=== PATIENT | male | born 1955 | race Caucasian/White ===

== ENCOUNTER 2021-10-05 08:44 | Inpatient (IN) | payer MEDICARE, BC, SELFPAY ==
[2021-10-05] VITALS (16 sets, daily range): BP systolic 105–166; BP diastolic 53–106; PULSE 82–100; RESP 12–22; TEMP 36.7–37.6; O2SAT 90–100; BMI 43.1; BMI 43.7
--- NOTE | 2021-10-05 09:29 | ED_ITS ---
HPI - Nausea/Vomiting/Diarrhea General Time Seen by Provider: 09:29 Date Seen: 10/05/21 Chief complaint: Nausea/Vomiting Stated complaint: Covid+, vomiting Time Seen by Provider: 10/05/21 08:50 Source: patient and RN notes reviewed Mode of arrival: ambulatory Limitations: no limitations History of Present Illness HPI Narrative: Patient is a 60-year-old male coming into the ER with right lower quadrant abdominal pain that has been there for about 3-4 days, nausea vomiting and diarrhea starting last night. This is in the setting of COVID with symptoms starting on FridayOctober 01. His started to become ill the day before him on Friday. He tested positive on Friday of this week with a home test. But again he started with symptoms with headache chills and fevers, sore throat, cough, congestion on Friday. The nausea vomiting and diarrhea started yesterday. He feels he has thrown up 5 times since last night with the last 3 times just being more bilious. The right lower quadrant pain is higher than the inguinal area where he has had inguinal hernia repair. It does not feel anything like the inguinal hernia. He is wondering if he can get Paxilovid. As discussed with him we need his kidney function and a full medication reconciliation, and we definitely can consider that. He needs to be able to take this orally though so we do need to work on the nausea and vomiting. He has been vaccinated for COVID and has had 1 booster. MD elicited complaint: nausea, vomiting, diarrhea and abdominal pain Pertinent past history: other (Has COVID currently) Onset (ago): day(s) Related Data Home Medications Medication Instructions Recorded Confirmed No Known Home Medications 10/05/21 10/05/21 Allergies Allergy/AdvReac Type Severity Reaction Status Date / Time No Known Drug Allergies Allergy Verified 10/05/21 09:05 Review of Systems Status of ROS: Reports: 10 or more systems reviewed and unremarkable except as noted in History and below [facility] Medical History (Updated 10/05/21 @ 13:02 by Anastasiia Garces MD) Erectile dysfunction Impaired fasting glucose Obesity Surgical History (Updated 10/05/21 @ 10:12 by Sindhu Almodovar MD) History of colonoscopy History of herniorrhaphy [place] teeth extracted Family History (Updated 10/05/21 @ 20:55 by Estelle Perez RN) Mother Cancer Brother Cancer Social History Highest level of school completed/degree received: high school graduate Smoking Status: Former smoker Do you use any of these nicotine containing products: None Second hand tobacco smoke exposure: No How often do you have a drink containing alcohol: monthly or less Alcohol type: hard liquor Alcohol type details: Marjarita How often do you have six or more drinks on one occasion: Never AUDIT-C Alcohol total score: 1 Non-prescribed substance use: denies use Caffeine: Yes (1 daily) service: No Exam Const: Vital Signs, click to edit/add: Vital Signs - 24 hr 10/05/21 09:05 10/05/21 13:43 10/05/21 14:23 Temperature 98.1 F 99.7 F H 99.7 F H Pulse Rate Pulse Rate [Right Pulse Oximeter] 100 86 Respiratory Rate 20 22 22 Blood Pressure Blood Pressure [Ri ght Arm] Blood Pressure [Ri ght Upper Arm] 142/106 H 166/88 H Pulse Oximetry 96 96 10/05/21 17:44 10/05/21 17:53 10/05/21 17:59 Temperature Pulse Rate 86 84 85 Pulse Rate [Right Pulse Oximeter] Respiratory Rate 12 12 12 Blood Pressure 137/60 118/56 L 105/53 L Blood Pressure [Ri ght Arm] Blood Pressure [Ri ght Upper Arm] Pulse Oximetry 99 100 99 10/05/21 18:38 10/05/21 18:45 Temperature 99.7 F H 99.7 F H Pulse Rate 97 Pulse Rate [Right Pulse Oximeter] 93 Respiratory Rate 18 18 Blood Pressure Blood Pressure [Ri ght Arm] 148/90 H 147/89 H Blood Pressure [Ri ght Upper Arm] Pulse Oximetry 92 Documenting provider has reviewed patient's vital signs: yes Common normals: no apparent distress, oriented x3, no limitations, alert and well nourished General appearance: cooperative, comfortable and well kempt Nutritional appearance: obese Orientation/consciousness: Yes awake HENMT: Common normals: normocephalic, head/scalp atraumatic, hearing grossly normal bilaterally, external ears normal, EAC's normal, external nose normal, moist oral mucous membranes, oropharynx normal and dentition normal Head and scalp: normocephalic and atraumatic Nose: external nose normal External ear: external ears normal External auditory canal: EAC's normal Eye: Common normals: PERRL, EOMs intact bilaterally, conjunctivae normal and no scleral icterus Conjunctiva: conjunctiva(e) normal Pupil: PERRL Neck & C-Spine: Common normals: full ROM, no lymphadenopathy, supple, no meningeal signs, no JVD and thyroid normal Thyroid: thyroid normal Resp: Common normals: normal respiratory effort, no retractions, no use of accessory muscles and clear to auscultation bilaterally Auscultation: clear to auscultation bilaterally Cardio: Common normals: no JVD, regular rate, regular rhythm, S1 normal heart sound, S2 normal heart sound, no gallops, no clicks and no murmurs Rate: regular rate Rhythm: regular rhythm Heart sounds: S1 normal and S2 normal GI: Other: Abdomen is obese, he has right lower quadrant tenderness with to underlying pal pable mass but his body habitus could preclude to the evaluation. Does not seem to be a hernia but he definitely seems to be tender in the abdominal wall. There is no right inguinal pain or protrusion. I do not feel any masses, no noted organomegaly. Bowel sounds are present. Extremity: Common normals: normal to inspection, full ROM, no calf tenderness and no pedal edema Neuro: Common normals: oriented x3 Sensorium/orientation: awake and alert Meningeal signs: no meningeal signs Psych: Appearance: well kempt Skin: Common normals: no rashes or lesions noted (Skin is tanned) General skin exam: no rashes or lesions noted (Skin is tanned) Course Course Hospital Course: We will place an IV, initiate normal saline, 15 mg IV Toradol for pain and 4 mg IV Zofran. We will get labs including his kidney function to see if he might be a candidate for Paxlovid. We will obtain CT abdomen pelvis with IV contrast to ensure no intra-abdominal pathology or any surgical abdomen. It is likely that this is just side effects from COVID but we certainly cannot miss a surgical abdomen in this patient. He still has his appendix. He is tender enough that I do think we need to proceed with imaging. Reevaluation(s) Reevaluation #1: Reviewed with patient his CT scan results of appendicitis. It may be ruptured but no abscess. We are waiting for the surgeon to look at the scan and to see the patient. Once she has evaluated the patient and his results, formal plan will be made. Time: 12:09 Consultations Consultation #1: Called Dr. Garces to alert her to this patient's CT scan with appendicitis and contained perforation but not abscess. She will look at the CT images as soon as she is able and get back to me. I will be letting the patient know the scan results. Unfortunately, I have also let our surgeon know that there is absolutely no capacity at any other beds and advanced level institutions. We have attempted to transfer different patient just within the past hour and there is completely no capacity for this level of patient. Dr. Garces did call back shortly after my initial phone call and actually spoke to my partner Dr. Gardner. Patient is going to need to go to the OR today and will likely be later this afternoon due to the schedule the OR. We will let the patient know. Dr. Gardner did appropriately converse with Dr. Garces about remdesivir for treatment of this patient's COVID. I will be speaking with him that we do have remdesivir here and I do recommend using remdesivir in lieu of Paxlovid. We do not have any Paxlovid within the system here. Time: 11:59 Vital Signs Vital signs: Initial Vital Signs Temperature 98.1 F 10/05/21 09:05 Temperature Source Temporal Artery Scan 10/05/21 09:05 Pulse Rate 100 10/05/21 09:05 Respiratory Rate 20 10/05/21 09:05 Blood Pressure 142/106 H 10/05/21 09:05 Blood Pressure Mean 118 10/05/21 09:05 Blood Pressure Position Sitting 10/05/21 09:05 Pulse Oximetry 96 10/05/21 09:05 Oxygen Delivery Method 10/05/21 09:05 Vital Signs Temperature 98.1 F 10/05/21 09:05 Pulse Rate 100 10/05/21 09:05 Respiratory Rate 20 10/05/21 09:05 Blood Pressure 142/106 H 10/05/21 09:05 Pulse Oximetry 96 10/05/21 09:05 Temperature 98.1 F 10/05/21 22:00 Pulse Rate 91 10/05/21 22:00 Respiratory Rate 18 10/05/21 22:00 Blood Pressure 155/83 H 10/05/21 22:00 Pulse Oximetry 93 10/05/21 22:00 MDM - Nausea/Vomiting/Diarrhea Lab Data Attestation: I reviewed the patient's lab results. Labs: Lab Results 10/05/21 10/05/21 10/05/21 Range/Units 10:10 10:10 10:10 WBC 14.54 H (4.50-11.00) K/uL RBC 5.29 (4.30-5.90) m/uL Hgb 13.7 (13.5-17.5) gm/dL Hct 40.8 (37.0-53.0) % MCV 77 L (80-100) fL MCH 26 (26-34) pg MCHC 34 (32-36) gm/dL RDW Coeff of Kirsty 13.6 (11.5-15.5) % Plt Count 245 (140-440) K/uL Neut % (Auto) 87.3 H (42.0-72.0) % Lymph % (Auto) 5.6 L (20-44) % Caroline % (Auto) 6.9 (0.0-11.0) % Eos % (Auto) 0.0 (0.0-7.0) % Baso % (Auto) 0.1 (0.0-3.0) % Neut # (Auto) 12.70 H (1.7-7.0) K/uL Lymph # (Auto) 0.80 L (0.90-2.90) K/uL Caroline # (Auto) 1.00 H (0.00-0.90) K/UL Eos # (Auto) 0.00 (0.00-0.50) K/uL Baso # (Auto) 0.00 (0.00-0.30) K/uL Abs Immat Gran (auto) 0.01 (0.00-0.30) K/uL Sodium 134 L (135-149) mmol/L Potassium 4.2 (3.6-5.1) mmol/L Chloride 96 (96-114) mmol/L Carbon Dioxide 27 (20-32) mmol/L BUN 20 (7-30) mg/dL Creatinine 0.9 (0.5-1.5) mg/dL Estimated Creat Clear 66.10 Estimated GFR 93 ml/min Glucose 143 H (60-115) mg/dL Lactate 1.3 (0.5-1.9) mmol/L Calcium 8.6 (8.4-10.6) mg/dL Total Bilirubin 0.7 (0.1-1.5) mg/dL AST 31 (12-35) U/L ALT 19 (4-50) U/L Alkaline Phosphatase 100 (40-150) U/L C-Reactive Protein 3.7 H (0.5-1.0) mg/dL Total Protein 7.8 (6.0-8.3) g/dL Albumin 4.1 (3.3-5.0) g/dL Imaging Data CT scan - abdomen: Attestation: I have reviewed the pertinent imaging results. Radiologist's impression: Patient: KANDY VERGARA Facility:?[facility] Patient ID:?[id number] Site Patient ID:?[id number]. Site :?[id number] Study:?CT Abdomen/Pelvis 130CC ISOVUE 370-10/05/2021 11:20:03 AM Ordering Physician:Laly Manley Final Report: INDICATION: COVID-19 positive; nausea and vomiting. Comparison : None. TECHNIQUE: CT abdomen and pelvis with intravenous contrast; coronal and sagittal reformats. FINDINGS: Questionable patchy infiltrates lung bases bilaterally; quality is compromised s econdary to respiratory motion. No evidence of pleural effusion. No focal hepatic or splenic pathology. No pancreatic pathology. Cholelithiasis. No adrenal pathology. No kidney stones or obstructive uropathy. No retroperitoneal lymphadenopathy. No evidence of abdominal or pelvic ascites. Diverticulosis sigmoid colon without any CT evidence of diverticulitis or abscess. Enlarged appendix measuring 2 cm in diameter with periappendiceal inflammatory changes indicating acute appendicitis. A contained rupture is not ruled out. No pneumoperitoneum or intestinal obstruction. Splenic vein, superior mesenteric vein and the portal vein are unremarkable. Impression: 1. Acute appendicitis possibly with contained rupture; no pneumoperitoneum or intestinal obstruction. 2. Cholelithiasis. 3. Diverticulosis sigmoid colon without any evidence of diverticulitis or abscess. Please note that all CT scans at this facility use dose modulation, iterative reconstruction, and/or weight-based dosing when appropriate to reduce radiation dose to as low as reasonably achievable. Dictated by Angel Delgadillo MD @ 10/05/2021 11:50:32 AM (Electronic Signature) Chest x-ray: Attestation: I have reviewed the pertinent imaging results. Radiologist's impression: Patient: KANDY VERGARA Facility:?[facility] Patient ID:?[id number] Site Patient ID:?[id number]. Site :?[id number] Study:?XRay Chest -10/05/2021 12:29:47 PM Ordering Physician:Laly Manley Final Report: Indication: Positive for epstein virus, vomiting Comparison: None available. Technique: Single AP view chest Findings: There is hyperinflation and chronic interstitial change. There are mildly increased interstitial markings likely representing mild pulmonary edema. There is no dense consolidation, effusion or pneumothorax. The cardiac silhouette is mildly prominent. The bony thorax is grossly intact. Impression: Hyperinflation and chronic interstitial change with mildly increased interstitial markings likely representing mild pulmonary edema. Dictated by Kedar Hernandez MD @ 10/05/2021 12:56:33 PM (Electronic Signature) ECG Data Attestation: I personally reviewed and interpreted this ECG as follows: (Sinus rhythm, 76 beats per minute. There is a solitary premature atrial complex. Very minimal nonspecific ST segment changes without T-wave inversion.) ECG interpretation date: 10/05/21 ECG interpretation time: 13:32 Prior ECG tracings: not available for review Discharge Plan Discharge Clinical Impression: COVID-19, Acute appendicitis Patient Disposition: Admitted As Inpatient Condition: Unchanged Critical Care Time Critical Care Time Critical Care Time: No
--- NOTE | 2021-10-05 09:41 | CRLHL7_ITS ---
For Patients: As a result of the Century Cures Act, medical imaging exams and procedure reports are released immediately into your electronic medical record. You may view this report before your referring provider. If you have questions, please contact your health care provider. INDICATION: COVID-19 positive; nausea and vomiting. Comparison : None. TECHNIQUE: CT abdomen and pelvis with intravenous contrast; coronal and sagittal reformats. FINDINGS: Questionable patchy infiltrates lung bases bilaterally; quality is compromised secondary to respiratory motion. No evidence of pleural effusion. No focal hepatic or splenic pathology. No pancreatic pathology. Cholelithiasis. No adrenal pathology. No kidney stones or obstructive uropathy. No retroperitoneal lymphadenopathy. No evidence of abdominal or pelvic ascites. Diverticulosis sigmoid colon without any CT evidence of diverticulitis or abscess. Enlarged appendix measuring 2 cm in diameter with periappendiceal inflammatory changes indicating acute appendicitis. A contained rupture is not ruled out. No pneumoperitoneum or intestinal obstruction. Splenic vein, superior mesenteric vein and the portal vein are unremarkable. Impression: 1. Acute appendicitis possibly with contained rupture; no pneumoperitoneum or intestinal obstruction. 2. Cholelithiasis. 3. Diverticulosis sigmoid colon without any evidence of diverticulitis or abscess. Please note that all CT scans at this facility use dose modulation, iterative reconstruction, and/or weight-based dosing when appropriate to reduce radiation dose to as low as reasonably achievable. Dictated by Angel Delgadillo MD @ 10/05/2021 11:50:32 AM (Electronically Signed)
[2021-10-05] MEDS: KETOROLAC 15 MG/ML inj IVP (10:11)
[2021-10-05] MEDS: ONDANSETRON 2 MG/ML inj 4 MG IVP (10:11)
[2021-10-05] MEDS: 0.9 % SODIUM CHLORIDE 500 ML 500 ML IV (10:12)
[2021-10-05 10:22] LABS: Lactate* 1.3 mmol/L (0.5-1.9)
[2021-10-05 10:23] LABS: Basophils Percent Auto 0.1 % (0.0-3.0); Hematocrit 40.8 % (37.0-53.0); Hemoglobin* 13.7 gm/dL (13.5-17.5); Immature Granulocytes Abs Auto 0.01 K/uL (0.00-0.30); Lymphocytes Percent Auto 5.6 % (20-44); Mean Corpuscular HGB Conc 34 gm/dL (32-36); Mean Corpuscular Hemoglobin 26 pg (26-34); Mean Corpuscular Volume 77 fL (80-100); Monocytes Percent Auto 6.9 % (0.0-11.0); Neutrophils Percent Auto 87.3 % (42.0-72.0); Platelet Count* 245 K/uL (140-440); RDW Coefficient of Variation % 13.6 % (11.5-15.5); Red Blood Count 5.29 m/uL (4.30-5.90); White Blood Count* 14.54 K/uL (4.50-11.00)
[2021-10-05 10:32] LABS: Slide Review Reflex No
[2021-10-05 10:40] LABS: Albumin* 4.1 g/dL (3.3-5.0); Chloride* 96 mmol/L (96-114); Potassium* 4.2 mmol/L (3.6-5.1); Sodium* 134 mmol/L (135-149)
[2021-10-05 10:42] LABS: Creatinine* 0.9 mg/dL (0.5-1.5); Estimated Glomerular Filt Rate 93 ml/min
[2021-10-05 10:43] LABS: Alanine Aminotransferase* 19 U/L (4-50); Alkaline Phosphatase* 100 U/L (40-150); Aspartate Amino Transferase* 31 U/L (12-35); Bilirubin Total* 0.7 mg/dL (0.1-1.5); Blood Urea Nitrogen* 20 mg/dL (7-30); Carbon Dioxide* 27 mmol/L (20-32); Total Protein* 7.8 g/dL (6.0-8.3)
[2021-10-05 10:44] LABS: Calcium* 8.6 mg/dL (8.4-10.6); Glucose* 143 mg/dL (60-115)
[2021-10-05 10:46] LABS: C Reactive Protein* 3.7 mg/dL (0.5-1.0)
--- NOTE | 2021-10-05 12:03 | CRLHL7_ITS ---
For Patients: As a result of the Cures Act, medical imaging exams and procedure reports are released immediately into your electronic medical record. You may view this report before your referring provider. If you have questions, please contact your health care provider. Indication: Positive for epstein virus, vomiting Comparison: None available. Technique: Single AP view chest Findings: There is hyperinflation and chronic interstitial change. There are mildly increased interstitial markings likely representing mild pulmonary edema. There is no dense consolidation, effusion or pneumothorax. The cardiac silhouette is mildly prominent. The bony thorax is grossly intact. Impression: Hyperinflation and chronic interstitial change with mildly increased interstitial markings likely representing mild pulmonary edema. Dictated by Kedar Hernandez MD @ 10/05/2021 12:56:33 PM (Electronically Signed)
--- NOTE | 2021-10-05 12:57 | PM.GSCN ---
History of Present Illness Consult details Consult date: 10/05/21 Narrative: Patient is a 66-year-old male, COVID positive, who presented to the emergency department with worsening right lower quadrant abdominal pain. He initially started to have COVID symptoms on Friday and tested positive Friday. On Friday he started to develop some diffuse abdominal pain. He has never had pain like this before. The pain then moved to his right lower abdomen. He denies any fevers, was having associated chills. Denies any nausea vomiting but has had decrease in appetite. His abdominal surgical history is positive for inguinal hernia repair. No problems with anesthesia, bleeding or blood clots. Review of Systems Status of ROS: Reports: 10 or more systems reviewed and unremarkable except as noted in History and below [facility] Medical History (Updated 10/05/21 @ 13:02 by Anastasiia Garces MD) Erectile dysfunction Impaired fasting glucose Obesity Surgical History (Updated 10/05/21 @ 10:12 by Sindhu Almodovar MD) History of colonoscopy History of herniorrhaphy [place] teeth extracted Social History Smoking Status: Smoker, status unknown Non-prescribed substance use: denies use Meds Home Medications and Allergies Home Medications Medication Instructions Recorded Confirmed Type No Known Home Medications 10/05/21 10/05/21 History Allergies Allergy/AdvReac Type Severity Reaction Status Date / Time No Known Drug Allergies Allergy Verified 10/05/21 09:05 Exam Narrative: Exam Narrative: General: Alert and oriented, no acute distress Respiratory: Equal breath rise bilaterally, maintained on room air CV: Regular rhythm and rate Abdomen: Obese abdomen, tender to palpation right lower quadrant with some guarding, no rebound. Const: Vital Signs, click to edit/add: Vital Signs - 24 hr 10/05/21 09:05 Temperature 98.1 F Pulse Rate [Right Pulse Oximeter] 100 Respiratory Rate 20 Blood Pressure [Ri ght Upper Arm] 142/106 H Pulse Oximetry 96 Results Labs Labs: Abnormal lab results 10/05/21 10/05/21 Range/Units 10:10 10:10 WBC 14.54 H (4.50-11.00) K/uL MCV 77 L (80-100) fL Neut % (Auto) 87.3 H (42.0-72.0) % Lymph % (Auto) 5.6 L (20-44) % Neut # (Auto) 12.70 H (1.7-7.0) K/uL Lymph # (Auto) 0.80 L (0.90-2.90) K/uL Anderson # (Auto) 1.00 H (0.00-0.90) K/UL Sodium 134 L (135-149) mmol/L Glucose 143 H (60-115) mg/dL C-Reactive Protein 3.7 H (0.5-1.0) mg/dL Diabetes panel 10/05/21 Range/Units 10:10 Sodium 134 L (135-149) mmol/L Potassium 4.2 (3.6-5.1) mmol/L Chloride 96 (96-114) mmol/L Carbon Dioxide 27 (20-32) mmol/L BUN 20 (7-30) mg/dL Creatinine 0.9 (0.5-1.5) mg/dL Glucose 143 H (60-115) mg/dL Calcium 8.6 (8.4-10.6) mg/dL AST 31 (12-35) U/L ALT 19 (4-50) U/L Alkaline Phosphatase 100 (40-150) U/L Total Protein 7.8 (6.0-8.3) g/dL Albumin 4.1 (3.3-5.0) g/dL Calcium panel 10/05/21 Range/Units 10:10 Calcium 8.6 (8.4-10.6) mg/dL Albumin 4.1 (3.3-5.0) g/dL Pituitary panel 10/05/21 Range/Units 10:10 Sodium 134 L (135-149) mmol/L Potassium 4.2 (3.6-5.1) mmol/L Chloride 96 (96-114) mmol/L Carbon Dioxide 27 (20-32) mmol/L BUN 20 (7-30) mg/dL Creatinine 0.9 (0.5-1.5) mg/dL Glucose 143 H (60-115) mg/dL Calcium 8.6 (8.4-10.6) mg/dL Adrenal panel 10/05/21 Range/Units 10:10 Sodium 134 L (135-149) mmol/L Potassium 4.2 (3.6-5.1) mmol/L Chloride 96 (96-114) mmol/L Carbon Dioxide 27 (20-32) mmol/L BUN 20 (7-30) mg/dL Creatinine 0.9 (0.5-1.5) mg/dL Glucose 143 H (60-115) mg/dL Calcium 8.6 (8.4-10.6) mg/dL Total Bilirubin 0.7 (0.1-1.5) mg/dL AST 31 (12-35) U/L ALT 19 (4-50) U/L Alkaline Phosphatase 100 (40-150) U/L Total Protein 7.8 (6.0-8.3) g/dL Albumin 4.1 (3.3-5.0) g/dL All other labs normal. Imaging Abdomen CT scan report/results: report reviewed and image reviewed Assessment and Plan Assessment and plan (1) Acute perforated appendicitis: Status: Acute Plan The patient presented with a history, exam and imaging findings consistent with acute appendicitis. On CT imaging there is evidence of a contained perforation, no large abscess that would be amendable to drainage. Complicating matters is the patient's recent diagnosis of symptomatic COVID illness. From a respiratory standpoint he is oxygenating well on room air and denies any shortness of breath. I discussed the treatment options with the patient including non-surgical and surgical options. Given the evidence of acute perforation I recommended laparoscopic appendectomy. The risks of surgery were reviewed with the patient including the risks of bleeding, post-operative wound or intra-abdominal infection, injury to abdominal structures and possible conversion to an open operation. We also discussed anesthetic complications including AL, stroke, respiratory failure and blood clots. The patient voiced an understanding of our conversation, had the opportunity to ask questions, agreed to accept the risks of surgery and asked that we proceed with surgery. -OR for laparoscopic appendectomy -patient will receive remdesivir in the emergency department given recent diagnosis of COVID -preoperative antibiotics, will likely need to continue these postoperatively given the status of perforation.
[2021-10-05] MEDS: PIPERACILLIN/TAZOBACTAM 3.375 GM in 0.9 % SODIUM CHLORIDE Mini-bag 100 ML IVPB ×2 (14:30→20:29)
[2021-10-05] MEDS: BUPIVACAINE 0.25% 30 ML INJECTION (15:32)
[2021-10-05] MEDS: BUPIVACAINE LIPOSOME 133 MG/10 ML INJ INFILTRATI (17:07)
[2021-10-05] MEDS: LACTATED RINGERS 1000 ML 1,000 ML 35 ML IV (17:30)
--- NOTE | 2021-10-05 17:45 | W.ANESCHARGE ---
Anesthesia Charges Start Date/Time Anesthesia Start Date: 10/05/21 Anesthesia Start Time: 14:25 Stop Date/Time Anesthesia Stop Date: 10/05/21 Anesthesia Stop Time: 17:40 Summary Emergency: Yes
--- NOTE | 2021-10-05 18:34 | PM.GSPRC ---
Operative Note Date of procedure: 10/05/21 Type of Procedure: Laparoscopic converted to open appendectomy Procedure Description: After discussing the risks and benefits of the procedure, the patient signed informed consent.? The operative site was marked and the patient was brought to the operating room and placed on the operating table in supine position.? Care was taken to pad the patient's pressure points.?? The patient was then intubated by anesthesia.?? The operative site was then prepped and draped in the usual sterile fashion.? A time-out was then performed. Entrance to the abdomen was obtained via a 5 mm optical trocar in the left upper quadrant. The abdomen was insufflated and briefly surveyed for any signs of injury. There were none. A 12 mm port was placed lateral to the umbilicus as well as a 5 mm port in the left lower quadrant under direct vision. The patient was then placed in Trendelenburg position with the right side up. The small bowel was gently moved out of the way. The appendix was very difficult to visualize since it was posterior to the cecum. Blunt dissection was utilized, as well as electrocautery to break up the lateral wall attachments. A thick inflammatory rind was present with a necrotic appearing appendix. Visualization of the appendix and the anatomy was made difficult secondary to location and the surrounding phlegmon. There was a small amount of purulence and some stool apparent, indicating perforation. The base of the appendix was visualized and an attempt was made to dissect out circumferentially. During this dissection the appendix perforation became worse with further contamination of stool. The decision was made at this time to convert to an open operation. A right lower quadrant transverse incision was made with a scalpel. Dissection was continued through the subcutaneous space with electrocautery. The anterior fascia was incised with electrocautery. The rectus muscle was divided and a transverse incision was made in the posterior fascia. An Ronald retractor was placed within the wound. The cecum was identified and [place] used to pull up the appendix base. The lateral attachments of the cecum was further dissected with electrocautery. The inflammatory rind around the appendix was further dissected out. The laparoscopic stapler was then utilized to perform a partial cecectomy just proximal to the appendix base with a 60 mm bowel staple load. The specimen was handed off to the back table to be sent for pathology. The staple line was examined with no evidence of bleeding and healthy tissue identified. The cavity was gently irrigated with saline. No bleeding was identified. A right lower quadrant drain was left in place. The right lower quadrant anterior and posterior fascia was closed with running 1-0 PDS suture. At this point the abdomen was reinsufflated, again hemostasis appeared excellent at the end of the case and the drain was in appropriate position within the right lower quadrant. The 12 mm port was closed with the Toney Cruz and 0 Vicryl suture. The abdomen was then desufflated and all ports removed under direct visualization. All port sites were closed with 4-0 Monocryl suture. The larger incision was closed in layers with interrupted 3 0 Vicryl and running 4-0 Monocryl suture. Sterile dressings were applied. Instrument sponge and needle counts were correct at the end of the case. The patient was then woken and transported to the PACU in stable condition. ? Sterile dressings were then applied. ? The patient was then woken and transported to the recovery area in stable condition. ? The patient tolerated the procedure well. Findings: Perforated, necrotic appendix. Difficult visualization and stool contamination with conversion to open operation. Anesthesia: GETA Surgeon: Anastasiia Garces MD Estimated blood loss (mL): 50 Condition: stable Disposition: PACU
--- NOTE | 2021-10-05 18:38 | PC.NURSE ---
Patient very combative with waking up. thrashing in the bed and trying to get out of the bed. VSS. Patient taken to med/surg unit via bed with assist of machine ii trimmer. Patient refused to wear a mask while transporting. Report given to med/surg nurse. Assisted patient to stand at the side of the bed to use the urinal. Patient became more coherent with time and didn't remember anything from the day. Incisions and drain intact. RAMILA patent of 25ml of bloody drainage. Patient settled into bed.
--- NOTE | 2021-10-05 18:58 | PC.NURSE ---
Shift Summary: Patient arrived to floor around 1824. Very disoriented and impulsive, difficult to redirect. Patient has already voided x1. IV in left AC patent. RAMILA in right lower abdomen patent, small amount of blood around dressing site. Patient requested ice for abdomen, when given took pillow case off and refusing to let staff put new case on. Tolerating fluids now, denies nausea. Rates pain 9/10. Still confused, repetitive questions to staff, states he can't remember the entire day. Bed alarm on, reminded frequently to use call light.
--- NOTE | 2021-10-05 19:06 | PM.IMCN1 ---
Date of Consult Consult date: 10/05/21 Primary Care Provider: Yoav Linder MD Consult Narrative Reason for consult: COVID Narrative: Gordy Harp is a 66 year old male who presented to the hospital today for a 4 day history of intractable vomiting and diarrhea. Symptoms accompanied by anorexia, and begain 4 days ago (Friday) - at that time, accompanied by headache, cough, and body aches. tested + for COVID last weekend, so patient did a home test on Friday (+). Most of his COVID symptoms have improved, but given progression of GI symptoms, presented to the ED today. ED Course and findings: - perforated appendicitis on CT, WBC 14 - Given 200mg of IV Remdesivir for COVID Patient taken to OR by Dr. Garces of General Surgery; appendectomy converted to open, no operative or anesthetic complications. On IV antibiotics given perforation. Dane denies significant past medical history, notes history of white coat HTN. No regular medications, has been using prn Ibuprofen for COVID symptoms. UTD on colonoscopy screening - 2019. Hernia repair 2012. Thrice COVID vaccinated. Adopted, biological mother of leukemia. Lives with locally. 2 adult children, 5 grandchildren. Retired. Former smoker (40 pack year history). Rare ETOH use. Review of Systems Status of ROS: Reports: 10 or more systems reviewed and unremarkable except as noted in History and below Narrative: Mildly confused upon awakening from anesthesia, aware of the confusion. +mild anxiety regarding hospitalization. No other concerns for hospitalist team. [facility] Medical History (Updated 10/05/21 @ 13:02 by Anastasiia Garces MD) Erectile dysfunction Impaired fasting glucose Obesity Surgical History (Updated 10/05/21 @ 10:12 by Sindhu Almodovar MD) History of colonoscopy History of herniorrhaphy [place] teeth extracted Family History (Updated 10/05/21 @ 20:55 by Estelle Perez RN) Mother Cancer Brother Cancer Social History Highest level of school completed/degree received: high school graduate Smoking Status: Former smoker Do you use any of these nicotine containing products: None Second hand tobacco smoke exposure: No How often do you have a drink containing alcohol: monthly or less Alcohol type: hard liquor Alcohol type details: Buddy How often do you have six or more drinks on one occasion: Never AUDIT-C Alcohol total score: 1 Non-prescribed substance use: denies use Caffeine: Yes (1 daily) service: No Meds Home Medications and Allergies Home Medications Medication Instructions Recorded Confirmed Type No Known Home Medications 10/05/21 10/05/21 History Allergies Allergy/AdvReac Type Severity Reaction Status Date / Time No Known Drug Allergies Allergy Verified 10/05/21 09:05 Exam Narrative: Exam Narrative: GEN: Alert and oriented, answering questions appropriately HEENT: Normal external ears, EOMIs bilaterally, no scleral icterus CV: RRR, No concerning murmurs, rubs, or gallops R: LCTA bilaterally without concerning wheezing, rales, or rhonchi. Air movement adequate Ext: wwp, no concerning edema Skin: No concerning skin lesions or rashes on exposed skin Neuro: Nonfocal, no resting tremor, gait not observed Psych: Appropriate Const: Vital Signs, click to edit/add: Vital Signs - 24 hr 10/05/21 09:05 10/05/21 13:43 10/05/21 14:23 Temperature 98.1 F 99.7 F H 99.7 F H Pulse Rate Pulse Rate [Right Pulse Oximeter] 100 86 Respiratory Rate 20 22 22 Blood Pressure Blood Pressure [Ri ght Arm] Blood Pressure [Ri ght Upper Arm] 142/106 H 166/88 H Pulse Oximetry 96 96 10/05/21 17:44 10/05/21 17:53 10/05/21 17:59 Temperature Pulse Rate 86 84 85 Pulse Rate [Right Pulse Oximeter] Respiratory Rate 12 12 12 Blood Pressure 137/60 118/56 L 105/53 L Blood Pressure [Ri ght Arm] Blood Pressure [Ri ght Upper Arm] Pulse Oximetry 99 100 99 10/05/21 18:38 10/05/21 18:45 Temperature 99.7 F H 99.7 F H Pulse Rate 97 Pulse Rate [Right Pulse Oximeter] 93 Respiratory Rate 18 18 Blood Pressure Blood Pressure [Ri ght Arm] 148/90 H 147/89 H Blood Pressure [Ri ght Upper Arm] Pulse Oximetry 92 Labs Labs: Short CBC 10/05/21 Range/Units 10:10 WBC 14.54 H (4.50-11.00) K/uL Hgb 13.7 (13.5-17.5) gm/dL Hct 40.8 (37.0-53.0) % Plt Count 245 (140-440) K/uL BMP 10/05/21 10:10 Sodium 134 L Potassium 4.2 Chloride 96 Carbon Dioxide 27 BUN 20 Creatinine 0.9 Glucose 143 H Calcium 8.6 Liver Function 10/05/21 Range/Units 10:10 Total Bilirubin 0.7 (0.1-1.5) mg/dL AST 31 (12-35) U/L ALT 19 (4-50) U/L Alkaline Phosphatase 100 (40-150) U/L Albumin 4.1 (3.3-5.0) g/dL Assessment and Plan Assessment and plan (1) Acute perforated appendicitis: Status: Acute (2) COVID-19: Status: Acute Plan 66 yo male, s/p appendectomy, + COVID. 1. COVID: RT referral, continue Remdesivir. Vital signs reassuring, not requiring supplemental oxygen. 2. Perforated appendicitis: Continue IV antiobiotics and routine postoperative cares per General Surgery. 3. Patient requests Full Code status.
[2021-10-05] MEDS: HYDROmorphone 0.5 mg/0.5 ml inj IVP ×3 (19:12→23:09)
[2021-10-06] VITALS (9 sets, daily range): BP systolic 140–161; BP diastolic 70–105; PULSE 79–88; RESP 18–20; TEMP 36.5–36.9; O2SAT 92–95
[2021-10-06] MEDS: HYDROmorphone 0.5 mg/0.5 ml inj IVP ×4 (01:54→17:25)
[2021-10-06] MEDS: PIPERACILLIN/TAZOBACTAM 3.375 GM in 0.9 % SODIUM CHLORIDE Mini-bag 100 ML IVPB ×4 (02:06→20:58)
[2021-10-06] MEDS: LACTATED RINGERS 1000 ML 1,000 ML 125 ML IV (02:06)
--- NOTE | 2021-10-06 04:57 | PC.NURSE ---
Shift note 19-23: Pt alert, using call light for needs. Up to BR w/ SBA, rating pain 2-5/10 taking PRN Dilaudid Q2h along w/ ice to op site. Laps sites x3 L side of abd intact w/ surgical glue, inc to lower R side of abd intact w/ steri strips, RAMILA emptied x2 for total of 40cc bloody drainage. Abd softly distended, bowels w/ minimal sound present, tolerating clears w/o nausea.
[2021-10-06 07:46] LABS: Basophils Percent Auto 0.1 % (0.0-3.0); Eosinophils Percent Auto 0.1 % (0.0-7.0); Hematocrit 37.1 % (37.0-53.0); Hemoglobin* 12.3 gm/dL (13.5-17.5); Immature Granulocytes Abs Auto 0.03 K/uL (0.00-0.30); Lymphocytes Percent Auto 9.2 % (20-44); Mean Corpuscular HGB Conc 33 gm/dL (32-36); Mean Corpuscular Hemoglobin 26 pg (26-34); Mean Corpuscular Volume 79 fL (80-100); Monocytes Percent Auto 7.8 % (0.0-11.0); Neutrophils Percent Auto 82.6 % (42.0-72.0); Platelet Count* 226 K/uL (140-440); RDW Coefficient of Variation % 14.2 % (11.5-15.5); Red Blood Count 4.71 m/uL (4.30-5.90)
[2021-10-06] MEDS: OXYCODONE 5 MG TABLET PO ×4 (07:46→19:48)
[2021-10-06 07:53] LABS: Chloride* 97 mmol/L (96-114); Slide Review Reflex No; Sodium* 132 mmol/L (135-149)
[2021-10-06 07:55] LABS: Creatinine* 1.1 mg/dL (0.5-1.5); Est. Creatinine Clearance* 55.91; Estimated Glomerular Filt Rate 73 ml/min
[2021-10-06 07:56] LABS: Blood Urea Nitrogen* 18 mg/dL (7-30); Carbon Dioxide* 31 mmol/L (20-32); Glucose* 114 mg/dL (60-115)
--- NOTE | 2021-10-06 11:21 | PM.GSPN ---
Subjective Subjective Date Seen: 10/06/21 Interval history: Patient is doing very well this morning. He does have a lot of pain on his right lower incision site and around the drain, but this is being controlled with pain medications. He tolerated some cranberry juice last night without nausea or vomiting. He does not have much of an appetite. He is currently denying any symptoms associated with his COVID, including shortness of breath or chronic cough. Exam Narrative: Exam Narrative: General: Alert and oriented, no acute distress. Sitting comfortably in bed. Respiratory: Equal breath rise bilaterally, maintained on room air CV: Regular rhythm and rate, well perfused Abdomen: Obese abdomen, appropriately tender over incision sites with some guarding no rebound. Steri-Strips over the right lower quadrant incision and Dermabond over others all clean/dry/intact. RAMILA drain with minimal serosanguineous output. Const: Vital Signs, click to edit/add: Vital Signs - 24 hr 10/05/21 13:43 10/05/21 14:23 10/05/21 17:44 Temperature 99.7 F H 99.7 F H Pulse Rate 86 Pulse Rate [Right Pulse Oximeter] 86 Respiratory Rate 12 Blood Pressure 137/60 Blood Pressure [Ri ght Arm] Blood Pressure [Ri ght Upper Arm] 166/88 H Pulse Oximetry 96 99 10/05/21 17:53 10/05/21 17:59 10/05/21 18:38 Temperature 99.7 F H Pulse Rate 84 85 97 Pulse Rate [Right Pulse Oximeter] Respiratory Rate 12 12 18 Blood Pressure 118/56 L 105/53 L Blood Pressure [Ri ght Arm] 148/90 H Blood Pressure [Ri ght Upper Arm] Pulse Oximetry 100 99 10/05/21 18:45 10/05/21 19:15 10/05/21 19:45 Temperature 99.7 F H 98.0 F 98.4 F Pulse Rate Pulse Rate [Right Pulse Oximeter] 93 88 87 Respiratory Rate 18 20 18 Blood Pressure Blood Pressure [Ri ght Arm] 147/89 H 149/88 H 114/71 Blood Pressure [Ri ght Upper Arm] Pulse Oximetry 92 91 92 10/05/21 20:13 10/05/21 20:15 10/05/21 20:58 Temperature 98.4 F 98.4 F Pulse Rate Pulse Rate [Right Pulse Oximeter] 87 86 Respiratory Rate 18 18 18 Blood Pressure Blood Pressure [Ri ght Arm] 114/71 158/91 H Blood Pressure [Ri ght Upper Arm] Pulse Oximetry 92 92 92 10/05/21 21:00 10/05/21 22:00 10/05/21 23:00 Temperature 98.7 F 98.1 F 98.0 F Pulse Rate Pulse Rate [Right Pulse Oximeter] 82 91 86 Respiratory Rate 18 18 18 Blood Pressure Blood Pressure [Ri ght Arm] 143/82 H 155/83 H 148/82 H Blood Pressure [Ri ght Upper Arm] Pulse Oximetry 93 93 93 10/06/21 00:00 10/06/21 04:01 10/06/21 08:00 Temperature 98.4 F 97.9 F 97.7 F Pulse Rate Pulse Rate [Right Pulse Oximeter] 86 82 81 Respiratory Rate 18 20 18 Blood Pressure Blood Pressure [Ri ght Arm] 145/83 H 161/91 H 145/90 H Blood Pressure [Ri ght Upper Arm] Pulse Oximetry 92 93 93 10/06/21 10:30 Temperature Pulse Rate Pulse Rate [Right Pulse Oximeter] Respiratory Rate 20 Blood Pressure Blood Pressure [Ri ght Arm] Blood Pressure [Ri ght Upper Arm] Pulse Oximetry 94 Labs/Imaging Labs Labs: WBC stable at 14.5. Hemoglobin dropped from 13.7-12.3 postoperatively Imaging Imaging: No new imaging this morning Progress Note: A&P Assessment and plan (1) Acute perforated appendicitis: Status: Acute Assessment and Plan: Patient is postop day 1 for perforated appendicitis. Procedure was laparoscopic converted to open appendectomy with placement of a RAMILA drain in the right lower quadrant. Overall doing well postoperatively. He did have some fevers yesterday evening in the immediate postop phase, but has been afebrile overnight. Other vital signs stable and within normal limits. He has been asymptomatic from a COVID standpoint and maintained on room air. He has been tolerating clear liquids and it is okay to advance diet as tolerated today. -continue remdesivir as scheduled -discontinued pulse oximetry this morning, will continue with patient on COVID isolation status -advance diet as tolerated, TKO IV fluids -RAMILA drain remains in place, continue to monitor output -IV and p.o. pain meds as needed -will continue with IV Zosyn -ambulation, SCDs and Lovenox for DVT prophylaxis -repeat CBC in the morning, will continue to trend fever curve and WBC
[2021-10-06] MEDS: ENOXAPARIN 30 MG/0.3ML INJ SUBCUT (13:01)
--- NOTE | 2021-10-06 15:27 | PC.NURSE ---
VSS AND AFEBRILE. PATIENT HAS BLOOD DRAINAGE INTO RAMILA DRAIN, LAP SITES x3 INTACT AND INCISION TO LOWER RIGHT ABDOMEN INTACT WITH STERI-STRIPS. BS HYPOACTIVE AND PATIENT DENIES PASSING GAS. PATIENT BELCHING AND OCCASIONAL HICCUPS. UP AD MAULIK IN ROOM AND TOLERATING ACTIVITY WELL WITH SOME PAIN. RECEIVING OXYCODONE FOR PAIN WITH MODERATE IMPROVEMENT. TOLERATING SMALL AMOUNTS OF A REGULAR DIET WITH NO C/O/ N/V.
[2021-10-06] MEDS: IBUPROFEN 600 MG TABLET PO (17:25)
--- NOTE | 2021-10-06 23:41 | PC.NURSE ---
Shift [id number]- Patient is pleasant and cooperative, though impulsive. He is up independently and tolerates well. Pain is increased this afternoon, but he states relief with PRN pain medications and ice. He is given demonstration of RAMILA bulb drain stripping. He is also educated about importance of not taking home medications or supplements without MD/RN knowledge or approval while in hospital. IV removed from AC due to leaking. Patient accidently removes replacement IV. Current IV is placed to left hand. He was in the middle of receiving IV antibiotic when he accidently removed.
[2021-10-07] VITALS (7 sets, daily range): BP systolic 149–179; BP diastolic 62–88; PULSE 70–90; RESP 18–20; TEMP 36.1–36.6; O2SAT 93–96
[2021-10-07] MEDS: OXYCODONE 5 MG TABLET PO ×4 (00:05→23:14)
[2021-10-07] MEDS: PIPERACILLIN/TAZOBACTAM 3.375 GM in 0.9 % SODIUM CHLORIDE Mini-bag 100 ML IVPB ×4 (02:51→20:32)
--- NOTE | 2021-10-07 05:17 | PC.NURSE ---
Addendum entered by Kelly Marquez RN 10/07/21 05:35: Patient maintains O2 sats >90% o RA. Original Note: [id number]: Patient cooperative with cares. Rates pain 4-6/10 controlled with PRN Oxycodone x1 and ice. Appeared to rest well during noc. Denies N/V. Independent in room. 3 lap sites glued, midline incision w/steri strips, and RAMILA drain site C/D/I. RAMILA draining small amounts of serosanguineous fluid.
[2021-10-07 07:56] LABS: Basophils Percent Auto 0.2 % (0.0-3.0); Eosinophils Percent Auto 1.2 % (0.0-7.0); Hematocrit 34.7 % (37.0-53.0); Hemoglobin* 11.5 gm/dL (13.5-17.5); Immature Granulocytes Abs Auto 0.02 K/uL (0.00-0.30); Lymphocytes Percent Auto 7.8 % (20-44); Mean Corpuscular HGB Conc 33 gm/dL (32-36); Mean Corpuscular Hemoglobin 26 pg (26-34); Mean Corpuscular Volume 79 fL (80-100); Monocytes Percent Auto 6.2 % (0.0-11.0); Neutrophils Percent Auto 84.4 % (42.0-72.0); Platelet Count* 194 K/uL (140-440); Red Blood Count 4.42 m/uL (4.30-5.90)
[2021-10-07 08:11] LABS: Slide Review Reflex No
--- NOTE | 2021-10-07 11:05 | PM.GSPN ---
Subjective Subjective Date Seen: 10/07/21 Interval history: Patient is doing well this morning. He does feel like his pain is slowly improving, with most of his discomfort coming from around the drain and the right lower incision. He did tolerate some regular food this morning, but now thinks he might have overdone it and is feeling slightly nauseous. He has not passed gas since the operation. He has been ambulating independently in his room, yet to walk the halls. He denies any fevers overnight. Exam Narrative: Exam Narrative: General: Alert and oriented, no acute distress. Sitting comfortably in bed. Respiratory: Maintained on room air, equal breath rise bilaterally CV: Regular rhythm and rate, well perfused Abdomen: Obese abdomen, incisions clean/dry/intact with no concern for infection. Drain with very minimal serosanguineous output. Const: Vital Signs, click to edit/add: Vital Signs - 24 hr 10/06/21 11:10 10/06/21 15:15 10/06/21 19:15 Temperature 98.3 F 98.4 F 97.7 F Pulse Rate [Right Pulse Oximeter] 84 84 79 Respiratory Rate 20 18 18 Blood Pressure [Ri ght Arm] 143/83 H 140/70 H 160/90 H Pulse Oximetry 95 94 94 10/06/21 23:00 10/07/21 03:00 Temperature 97.8 F 97.7 F Pulse Rate [Right Pulse Oximeter] 88 75 Respiratory Rate 18 20 Blood Pressure [Ri ght Arm] 161/105 H 162/81 H Pulse Oximetry 94 94 Progress Note: A&P Assessment and plan (1) Acute perforated appendicitis: Status: Acute Assessment and Plan: Patient is postop day 2 for perforated appendicitis. Procedure was laparoscopic converted to open appendectomy with placement of a RAMILA drain in the right lower quadrant. Continues to progress as expected postoperatively. He has remained afebrile for the last greater than 24 hours and his leukocytosis is trending down. He continues on IV antibiotics and will need to eventually transition to oral medications to complete a 10 day course. His diet was advanced irregular, but patient has yet to pass gas or have a bowel movement. I did offer a suppository this morning, with patient declining and wanting instead stool softeners which will be prescribed. He has been asymptomatic from a COVID standpoint and maintained on room air. -continue remdesivir as scheduled -continue regular diet -RAMILA drain remains in place, continue to monitor output -IV and p.o. pain meds as needed -will continue with IV Zosyn, with transition to Augmentin at the time of discharge -ambulation, SCDs and Lovenox for DVT prophylaxis Anticipate the patient will be ready to have his drain removed and discharged tomorrow.
[2021-10-07] MEDS: IBUPROFEN 600 MG TABLET PO ×2 (12:13→20:27)
--- NOTE | 2021-10-07 15:28 | PC.NURSE ---
VSS AND AFEBRILE. RAMILA DRAINING SEROSANGUINOUS FLUID WITH TOTAL OF 30ML OUT FOR THIS SHIFT. BS ACTIVE BUT PATIENT HAS YET TO PAST GAS. BELCHING FREQUENTLY. TOLERATING REGULAR DIET WITH NO C/O N/V. LAP SITES x3 AND STERI-STRIPS TO RLQ INCISION INTACT. PAIN CONTROLLED WITH OXYCODONE AND IBUPROFEN. UP INDEPENDENTLY IN ROOM.
[2021-10-07] MEDS: SENNOSIDES 1 TAB TABLET PO (20:26)
--- NOTE | 2021-10-07 22:38 | PC.NURSE ---
Shift [id number]- Patient states he is comfortable at rest with increased pain with movement. He denies need for pain medication throughout shift, though accepts ibuprofen when offered. He is also using ice. RAMILA with 15mL out this shift. He is up independently and tolerates well, preferring to stand and/or walk around room at times. He passed gas this afternoon. Bowel sounds are active. He states he is hungry before supper. Tolerates diet without issue. He is drinking and voiding.
[2021-10-08] MEDS: guaiFENesin 100 MG/ML CUP PO (01:46)
[2021-10-08] MEDS: PIPERACILLIN/TAZOBACTAM 3.375 GM in 0.9 % SODIUM CHLORIDE Mini-bag 100 ML IVPB ×2 (02:48→08:39)
[2021-10-08 03:00] VITALS: BP 143/59; PULSE 76; RESP 20; TEMP 36.4; O2SAT 94
[2021-10-08] MEDS: OXYCODONE 5 MG TABLET PO ×2 (03:41→09:09)
[2021-10-08] MEDS: ACETAMINOPHEN 325 MG TABLET 650 MG PO ×2 (03:41→09:09)
--- NOTE | 2021-10-08 05:46 | PC.NURSE ---
SHIFT NOTE 23-: Pt A&O. Afebrile. Oxygen saturations >90% on room air. Pt c/o of a non productive cough, PRN Robitussin given. PRN Oxycodone given x2 for abdominal pain, pt reported relief. Lap sites intact, RAMILA drain stripped with minimal output. Pt reports passing flatus. Denies N/V, SOB, and CP. Up independent in room.
[2021-10-08 08:21] VITALS: BP 172/84; PULSE 62; RESP 18; TEMP 36.7; O2SAT 95
--- NOTE | 2021-10-08 08:27 | P.DS_ITS ---
DS: Providers Provider Date Seen: 10/08/21 Date of admission: 10/05/21 18:51 Primary care physician: Yoav Linder MD Admitting Clinician: Anastasiia Garces MD Consults: 10/05/21 17:29 Consult to Physician [CONS] Routine Comment: Consulting Provider: Geneva Guzmán Has provider been notified: Yes Attending Physician on discharge: Anastasiia Garces MD DS: Diagnosis Discharge Diagnosis (1) Acute perforated appendicitis: Status: Acute DS: Summary Hospital Course Hospital Course: Patient presented to the emergency department with evidence of perforated appendicitis. He also was recently positive for symptomatic COVID disease. He underwent a laparoscopic converted to open appendectomy, with a RAMILA drain left in the right lower quadrant. Postoperatively he did well. He continued on IV antibiotics until evidence of down trending WBC and improved fever curve. He was discharged on a course of oral Augmentin for antibiotics. His drain was removed prior to discharge. At the time of discharge he was tolerating a regular diet, ambulating independently, pain was well controlled on oral m edications and he was passing gas. Time Spent with Patient Time attestation: Total time spent providing and/or coordinating discharge services: Exam Narrative: Exam Narrative: General: Alert and oriented, no acute distress Respiratory: Equal breath rise bilaterally, maintained on room air CV: Regular rhythm and rate, well perfused Abdomen: Soft, nontender. Incisions clean/dry/intact. RAMILA drain with minimal serous output, removed at bedside without difficulty. Const: Vital Signs, click to edit/add: Vital Signs - 24 hr 10/07/21 11:00 10/07/21 13:15 10/07/21 15:55 Temperature 97.8 F 97 F L Pulse Rate [Right Pulse Oximeter] 77 70 Respiratory Rate 20 18 18 Blood Pressure [Ri ght Arm] 149/62 H 156/75 H Pulse Oximetry 94 94 95 10/07/21 19:05 10/07/21 23:10 10/08/21 03:00 Temperature 97 F L 97.4 F L 97.6 F Pulse Rate [Right Pulse Oximeter] 88 90 76 Respiratory Rate 18 18 20 Blood Pressure [Ri ght Arm] 158/70 H 165/88 H 143/59 H Pulse Oximetry 96 93 94 10/08/21 08:21 Temperature 98.0 F Pulse Rate [Right Pulse Oximeter] 62 Respiratory Rate 18 Blood Pressure [Ri ght Arm] 172/84 H Pulse Oximetry 95 Discharge Plan Discharge Disposition: Home, Self-Care Date of Admission: 10/05/21 18:51 Attending Provider on Discharge: Anastasiia Garces Consulting Providers: Geneva Guzmán Primary Care Provider: Yoav Linder Condition: Unchanged Anticipated Discharge Date/Time: 10/08/21 11:10 Discharge Medications: New oxycodone 5 mg tablet 5 mg PO Q6H PRN (Reason: pain) Qty: 15 0RF senna 8.6 mg capsule 8.6 mg PO DAILY PRN (Reason: constipation) Qty: 90 0RF Rx Instructions: Please take stool softeners while on narcotic pain medications. Stop if having > 2 stools per day. ondansetron 4 mg tablet,disintegrating 4 mg PO Q6H Qty: 20 0RF amoxicillin-pot clavulanate [Augmentin] 500-125 mg tablet 1 tab PO Q8H 10 Days Qty: 20 0RF Discharge Orders: Discharge Order (Routine); Ordered 10/08/21 Ordered By: Anastasiia Garces Patient Education: Laparoscopic Appendectomy (DC), Post-Operative Instructions: Appendectomy Activity Level: Activity as Tolerated Activity Detail: Activity as tolerated. Avoid strenuous activity. No lifting greater than 20 lb for 6 weeks. Discharge Diet: Regular Follow Up Appointments: Anastasiia Garces MD [Staff Physician] - Yoav Linder MD [Primary Care Provider] - Forms: [facility] Info Instructions
[2021-10-08] MEDS: LACTOBACILLUS ACIDOPHILUS 1 TABLET 1 TAB PO (08:41)
[2021-10-08] MEDS: SENNOSIDES 1 TAB TABLET PO (08:43)
[2021-10-08 09:13] VITALS: RESP 18
--- NOTE | 2021-10-08 12:06 | PC.NURSE ---
Discharge-- Pleasant and cooperative, alert and oriented patient discharged to home ambulatory at approximately 1030. VSS, though hypertensive this morning, and pt is afebrile. SPO2 maintained >90% on RA. Pain appears well managed with Oxycodone and Tylenol. 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 2x lap sites were DRY END OPERATOR with skin glue. RAMILA drain was removed by MD at bedside this morning and site was covered with gauze and a Tegaderm that were C/D/I. LS CTA. BS+x4, pt denied nausea, tolerated a regular diet and is passing flatus. He has had no post op BM yet, but he states that he believes it will happen soon. Discharge education was provided including diagnosis info, symptoms to report, medications and follow up plan. All questions were answered and SL was removed with tip intact.
--- NOTE | 2021-10-10 15:02 | PC.NURSE ---
Patient was trying to get a hold of Dr. Garces's office to inquire about the steri-strips that were on his incisions. He did not receive a call back, so he called the hospital and was transferred to the warehouse freight handler. Advised patient to leave steri-strips on incisions. He can trim them if they are starting to curl up. If they fall off, no need to replace them. Okay to leave on for another week if they are in place. Advised him to watch for signs and symptoms of infection and when to call his provider. Patient verbally understood instructions and had no further questions at this time. Will have a f/u appointment on 10/23/21.
== END 2021-10-08 10:30 | disposition home or self-care (01) | DRG 338 ==
LOC: ED 12:21 → SS 13:23 → MEDSURG 18:51
PROVIDERS: Admitting Provider Surgery; Emergency Provider Family Medicine; PCP Family Medicine; Visit Provider Surgery
PROC: 0DTJ4ZZ Resection of Appendix, Percutaneous Endoscopic Approach (ICD-10-PCS; CPT 44970; principal; 2021-10-05 14:30)
DX: K35.32 Acute appendicitis with perforation, localized peritonitis, and gangrene, without abscess (principal); U07.1 COVID-19; Z68.41 Body mass index [BMI] 40.0-44.9, adult; E66.9 Obesity, unspecified; R73.02 Impaired glucose tolerance (oral)
CPT/HCPCS: 00840; 36415; 71045; 74177; 80048; 80053; 83605; 85025; 86140; 88304; 93005; 94664; 94761; 99140; 99284; 99285; A9270; C9290; J0330; J1170; J1650; J1885; J2250; J2405; J2543; J2704; J3010; J3490; J7050; J7120; Q9967

== ENCOUNTER 2021-11-12 09:08 | Emergency (ER) | payer MEDICARE, BC, SELFPAY ==
[2021-11-12 09:19] VITALS: BP 156/89; PULSE 87; RESP 18; TEMP 36.2; O2SAT 97; BMI 43.5
--- NOTE | 2021-11-12 09:30 | ED.GENADULT ---
HPI - General Adult General Time Seen by Provider: 09:30 Date Seen: 11/12/21 Chief complaint: Extremity Pain/Injury, Lower Stated complaint: Painful lump right calf Time Seen by Provider: 11/12/21 09:29 Source: patient, RN notes reviewed and old records reviewed Mode of arrival: ambulatory Limitations: no limitations History of Present Illness HPI narrative: Patient is a 66-year-old male coming in with 2 days of right calf pain and swelling. He is not aware of any trauma. He can walk but if he walks a long time it does start ache. No shortness of breath, no difficulty breathing, no chest pain, no palpitations. No history of a DVT. Does have confounding history of COVID and acute appendicitis with surgery on October 05, this was done here. 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 Related Data Home Medications Medication Instructions Recorded Confirmed No Known Home Medications 11/12/21 11/12/21 Allergies Allergy/AdvReac Type Severity Reaction Status Date / Time No Known Drug Allergies Allergy Verified 10/05/21 09:05 Review of Systems Status of ROS: Reports: 6 or more systems reviewed and unremarkable except as noted in History and below PFSH PFSH Medical History Erectile dysfunction Impaired fasting glucose Obesity Surgical History History of colonoscopy History of herniorrhaphy [place] teeth extracted Family History Mother Cancer Brother Cancer Social History Highest level of school completed/degree received: high school graduate Smoking Status: Former smoker Do you use any of these nicotine containing products: None Second hand tobacco smoke exposure: No How often do you have a drink containing alcohol: monthly or less Alcohol type: hard liquor Alcohol type details: [place] How often do you have six or more drinks on one occasion: Never AUDIT-C Alcohol total score: 1 Non-prescribed substance use: denies use Caffeine: Yes (1 daily) service: No Exam Const: Vital Signs, click to edit/add: Vital Signs - 24 hr 11/12/21 09:19 Temperature 97.2 F L Pulse Rate [Right Pulse Oximeter] 87 Respiratory Rate 18 Blood Pressure [Ri ght Upper Arm] 156/89 H Pulse Oximetry 97 Oxygen Delivery Me thod Room Air Documenting provider has reviewed patient's vital signs: yes Common normals: no apparent distress, oriented x3, no limitations, healthy appearing, alert and well nourished General appearance: cooperative, comfortable and well kempt Nutritional appearance: overweight HENMT: Common normals: normocephalic, head/scalp atraumatic and hearing grossly normal bilaterally Head and scalp: normocephalic and atraumatic Eye: Common normals: PERRL, EOMs intact bilaterally, conjunctivae normal and no scleral icterus Conjunctiva: conjunctiva(e) normal Pupil: PERRL Neck & C-Spine: Common normals: full ROM, no lymphadenopathy, supple, no meningeal signs, no JVD and thyroid normal Thyroid: thyroid normal Resp: Common normals: normal respiratory effort, no retractions, no use of accessory muscles and clear to auscultation bilaterally Auscultation: clear to auscultation bilaterally Cardio: Common normals: no JVD, regular rate, regular rhythm, S1 normal heart sound, S2 normal heart sound, no gallops, no clicks and no murmurs Rate: regular rate Rhythm: regular rhythm Heart sounds: S1 normal and S2 normal GI: Common normals: Normal to inspection, nondistended, normoactive bowel sounds present, soft to palpation, non-tender, no hepatosplenomegaly and no masses Palpation: soft and no hepatosplenomegaly Extremity: Other: Has a central area in his posterior calf that is tender slightly swollen. Achilles is intact. There is no global swelling of this right lower extremity. Does not seem to be erythematous like a cellulitis. The area feels more indurated, do feel that this certainly could be thromboembolic manifestations. Neuro: Common normals: oriented x3 Sensorium/orientation: alert Meningeal signs: no meningeal signs Psych: Appearance: well kempt Course Course Hospital Course: We will be obtaining an ultrasound of his right lower extremity to further review possible thromboembolic disease. Could be other musculoskeletal causes but I think thromboembolic disease seems most likely here. Will await the ultrasound results. He has no physical stigmata or clinical presentation to be concerning for PE. Reevaluation(s) Reevaluation #1: Reviewed with patient the venous ultrasound showing superficial thrombophlebitis, no DVT. Did review treatment recommendations for this. Time: 10:50 Vital Signs Vital signs: Initial Vital Signs Temperature 97.2 F L 11/12/21 09:19 Temperature Source Temporal Artery Scan 11/12/21 09:19 Pulse Rate 87 11/12/21 09:19 Respiratory Rate 18 11/12/21 09:19 Blood Pressure 156/89 H 11/12/21 09:19 Blood Pressure Mean 111 11/12/21 09:19 Blood Pressure Position Sitting 11/12/21 09:19 Pulse Oximetry 97 11/12/21 09:19 Oxygen Delivery Method 11/12/21 09:19 Vital Signs Temperature 97.2 F L 11/12/21 09:19 Pulse Rate 87 11/12/21 09:19 Respiratory Rate 18 11/12/21 09:19 Blood Pressure 156/89 H 11/12/21 09:19 Pulse Oximetry 97 11/12/21 09:19 Oxygen Delivery Method 11/12/21 09:19 Temperature 97.2 F L 11/12/21 09:19 Pulse Rate 87 11/12/21 09:19 Respiratory Rate 18 11/12/21 09:19 Blood Pressure 156/89 H 11/12/21 09:19 Pulse Oximetry 97 11/12/21 09:19 Oxygen Delivery Method 11/12/21 09:19 Medical Decision Making Imaging Data Venous US: Attestation: I have reviewed the pertinent imaging results. Radiologist's impression: Patient: KANDY VERGARA Facility:?[facility] Patient ID:?[id number] Site Patient ID:?[id number]. Site :?[id number] Study:?US Extremity Right -11/12/2021 10:32:32 AM Ordering Physician:Laly Manley Final Report: INDICATION: Right lower extremity calf swelling. TECHNIQUE: Ultrasound venous duplex lower right extremity. Compression venous exam was performed using mcnally-scale, color Doppler, and spectral Doppler analysis. COMPARISON: None. FINDINGS: Deep veins: Sonographic imaging demonstrates the right common femoral, deep femoral, superficial femoral, popliteal, posterior tibial and the contralateral right common femoral veins to be fully compressible with normal color Doppler blood flow. Superficial veins: Greater saphenous vein is fully compressible. At the area of palpable pain and swelling in the posterior lower leg there is superficial thrombophlebitis in a varicose vein. No popliteal cyst. IMPRESSION: 1. Superficial thrombophlebitis in the area of palpable swelling and pain. 2. No evidence of deep venous thrombosis. Dictated by Chito Crowder MD @ 11/12/2021 10:47:47 AM (Electronic Signature) Critical Care Time Critical Care Time Critical Care Time: No Discharge Plan Discharge Clinical Impression: Superficial thrombophlebitis of right leg Patient Disposition: Home, Self-Care Condition: Stable Instructions: Superficial Thrombophlebitis (ED) Additional Instructions: Take 325 mg aspirin daily, need to have an ultrasound scheduled in 1 weeks time for re-evaluation of this leg. Normally, we would not necessarily recommend this for superficial thrombophlebitis but you have complicating factors of recent surgery as well as COVID. Thus, would recommend a follow-up ultrasound of this leg in 1 weeks time. Please contact your primary care provider to have this ordered. You certainly can take Tylenol and/or ibuprofen for discomfort, follow bottle directions for dosing. Should you develop significant swelling of your lower extremity, have significant increase in pain, develops any respiratory symptoms or chest symptoms like shortness of breath chest pain, do need to be re-evaluated in the ER in the interim. Activity Level: Activity as Tolerated Prescriptions: No Action No Known Home Medications Follow Up/Referrals: Yoav Linder MD [Primary Care Provider] - Stand Alone Forms: [employer] Info Instructions
--- NOTE | 2021-11-12 09:32 | CRLHL7_ITS ---
For Patients: As a result of the Century Cures Act, medical imaging exams and procedure reports are released immediately into your electronic medical record. You may view this report before your referring provider. If you have questions, please contact your health care provider. INDICATION: Right lower extremity calf swelling. TECHNIQUE: Ultrasound venous duplex lower right extremity. Compression venous exam was performed using mcnally-scale, color Doppler, and spectral Doppler analysis. COMPARISON: None. FINDINGS: Deep veins: Sonographic imaging demonstrates the right common femoral, deep femoral, superficial femoral, popliteal, posterior tibial and the contralateral right common femoral veins to be fully compressible with normal color Doppler blood flow. Superficial veins: Greater saphenous vein is fully compressible. At the area of palpable pain and swelling in the posterior lower leg there is superficial thrombophlebitis in a varicose vein. No popliteal cyst. IMPRESSION: 1. Superficial thrombophlebitis in the area of palpable swelling and pain. 2. No evidence of deep venous thrombosis. Dictated by Chito Crowder MD @ 11/12/2021 10:47:47 AM (Electronically Signed)
== END 2021-11-12 11:20 | disposition home or self-care (01) ==
PROVIDERS: Emergency Provider Family Medicine; PCP Family Medicine
DX: I80.01 Phlebitis and thrombophlebitis of superficial vessels of right lower extremity (principal)
CPT/HCPCS: 93971; 99282; 99283

== ENCOUNTER 2023-05-08 18:35 | Outpatient (CLI) | payer OTHER, MEDICARE, BC, SELFPAY | END 2023-05-08 18:36 | disposition home or self-care (01) | LOC: AMB 05-23 15:46 | PROVIDERS: PCP Family Medicine; Visit Provider Family Medicine | DX: S29.9XXA Unspecified injury of thorax, initial encounter (principal); S69.92XA Unspecified injury of left wrist, hand and finger(s), initial encounter; V43.52XA Car driver injured in collision with other type car in traffic accident, initial encounter; Y92.410 Unspecified street and highway as the place of occurrence of the external cause | CPT/HCPCS: A0425; A0427 ==

== ENCOUNTER 2023-05-08 19:21 | Emergency (ER) | payer OTHER, MEDICARE, BC, SELFPAY ==
[2023-05-08 19:22] VITALS: BP 173/97; PULSE 96; RESP 18; TEMP 36.6; O2SAT 96; BMI 74.7
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
[2023-05-08 20:37] LABS: Basophils Absolute Auto 0.02 K/uL (0.00-0.30); Basophils Percent Auto 0.2 % (0.0-3.0); Eosinophils Absolute Auto 0.13 K/uL (0.00-0.50); Eosinophils Percent Auto 1.2 % (0.0-7.0); Hematocrit 46.6 % (37.0-53.0); Hemoglobin* 15.7 gm/dL (13.5-17.5); Immature Granulocytes Abs Auto 0.02 K/uL (0.00-0.30); Immature Granulocytes Pct Auto 0.2 %; Mean Corpuscular HGB Conc 34 gm/dL (32-36); Mean Corpuscular Hemoglobin 27 pg (26-34); Mean Corpuscular Volume 80 fL (80-100); Monocytes Percent Auto 6.7 % (0.0-11.0); Neutrophils Percent Auto 73.7 % (42.0-72.0); Platelet Count* 242 K/uL (140-440); RDW Coefficient of Variation % 13.2 % (11.5-15.5); Red Blood Count 5.84 m/uL (4.30-5.90); White Blood Count* 10.75 K/uL (4.50-11.00)
[2023-05-08 20:44] LABS: Slide Review Reflex No
[2023-05-08 20:48] LABS: Albumin* 4.8 g/dL (3.3-5.0); Chloride* 102 mmol/L (96-114); Sodium* 138 mmol/L (135-149)
[2023-05-08 20:49] LABS: Potassium* 3.5 mmol/L (3.6-5.1)
[2023-05-08 20:51] LABS: Alkaline Phosphatase* 100 U/L (40-150); Anion Gap 10 mEq/L (7-15); Aspartate Amino Transferase* 29 U/L (12-35); Bilirubin Total* 0.5 mg/dL (0.1-1.5); Blood Urea Nitrogen* 18 mg/dL (7-30); Carbon Dioxide* 26 mmol/L (20-32); Creatinine* 0.8 mg/dL (0.5-1.5); Est. Creatinine Clearance* 62.91; Estimated Glomerular Filt Rate 96 ml/min
[2023-05-08 20:52] LABS: Alanine Aminotransferase* 19 U/L (4-50); Calcium* 9.6 mg/dL (8.4-10.6); Glucose* 112 mg/dL (60-115)
== END 2023-05-08 22:50 | disposition home or self-care (01) ==
PROVIDERS: Emergency Provider Family Medicine; PCP Family Medicine
DX: S16.1XXA Strain of muscle, fascia and tendon at neck level, initial encounter (principal); S60.012A Contusion of left thumb without damage to nail, initial encounter; V43.52XA Car driver injured in collision with other type car in traffic accident, initial encounter; Y92.411 Interstate highway as the place of occurrence of the external cause
CPT/HCPCS: 36415; 72040; 73130; 74177; 80053; 81001; 85025; 99284; 99285; Q9967